=== PATIENT | female | born 1980 | race Caucasian/White ===

== ENCOUNTER 2018-06-13 01:21 | Emergency (ER) | payer SELFPAY, MEDICAID ==
[2018-06-13] MEDS: ONDANSETRON (ODT) 4 MG TAB ODT (04:08)
[2018-06-13] MEDS: DIPHENHYDRAMINE 50 MG INJ IM (04:08)
== END 2018-06-13 04:49 | disposition home or self-care (01) ==
LOC: FTE 01:21
DX: F41.9 Anxiety disorder, unspecified (principal); J45.909 Unspecified asthma, uncomplicated; F17.210 Nicotine dependence, cigarettes, uncomplicated; R11.2 Nausea with vomiting, unspecified
CPT/HCPCS: 96372; 99284-25